=== PATIENT | female | born 1995 | race Two or more races ===

== ENCOUNTER 2024-12-26 11:11 | Outpatient (REF) | payer MEDICAID, SELFPAY ==
--- OUTSIDE RECORDS SUMMARY | 2024-12-23 23:59 | XMS_ITS | Continuity of Care Document ---
Author Organization [facility] Address [address] [place] [address]- Care Team Providers Care Public Address Systems Mechanic Name Role Phone Krystal BOWER, Marga Polanco Primary Care Physician [phone] Encounter [facility] [place] Date(s): 11/23/24 - 12/23/24 [facility] [address] [place] [address]- Attending Physician: Admtr, Ar8 Admitting Physician: Admtr, Ar8 Referring Physician: Admtr, Ar8 Encounter Type: Triage Allergies, Adverse Reactions, Alerts Substance Criticality Severity Reaction Reaction Severity Status Latex rash Active Immunizations Given and Recorded Vaccine Date Status Refusal Reason SARS-CoV-2 (COVID-19) mRNA-1273 vaccine 01/14/21 R ecorded SARS-CoV-2 (COVID-19) mRNA-1273 vaccine 04/09/20 R ecorded SARS-CoV-2 (COVID-19) mRNA-1273 vaccine 03/10/20 R ecorded influenza virus vaccine, inactivated 11/10/20 Cory rded influenza virus vaccine, inactivated 03/01/19 Cory rded influenza virus vaccine, inactivated 10/17/15 Cory rded influenza virus vaccine, inactivated 01/18/12 Cory rded influenza virus vaccine, inactivated 11/14/09 Cory rded influenza virus vaccine, inactivated 10/22/08 Cory rded hepatitis B adult vaccine 10/10/19 Recorded hepatitis B adult vaccine 02/14/19 Recorded hepatitis B adult vaccine 01/17/19 Recorded tetanus-diphtheria toxoids (Td) 07/19/18 Recorded Meningococcal Conjugate Vaccine 07/04/14 Recorded Meningococcal Conjugate Vaccine 11/14/09 Recorded Human Papillomavirus Vaccine 06/04/10 Recorded Human Papillomavirus Vaccine 01/16/10 Recorded Human Papillomavirus Vaccine 11/14/09 Recorded Varicella Virus Vaccine 11/14/09 Recorded Varicella Virus Vaccine 12/02/98 Recorded tetanus/diphtheria/pertussis, acel(Tdap) 10/06/06 Recorded hepatitis B pediatric vaccine 10/05/06 Recorded hepatitis B pediatric vaccine 97 Recorded hepatitis B pediatric vaccine 97 Recorded hepatitis B pediatric vaccine 97 Recorded Poliovirus Vaccine, Inactivated 08/21/01 Recorded Poliovirus Vaccine, Inactivated 01/29/98 Recorded Poliovirus Vaccine, Inactivated 97 Recorded Poliovirus Vaccine, Inactivated 97 Recorded Measles/Mumps/Rubella Virus Vaccine 08/21/01 Recor ded Measles/Mumps/Rubella Virus Vaccine 07/30/98 Recor ded diphtheria/tetanus/pertussis, acel(DTaP) 08/21/01 Recorded diphtheria/tetanus/pertussis, acel(DTaP) 02/08/99 Recorded diphtheria/tetanus/pertussis, acel(DTaP) 01/07/98 Recorded diphtheria/tetanus/pertussis, acel(DTaP) 97 Recorded diphtheria/tetanus/pertussis, acel(DTaP) 97 Recorded Medications levETIRAcetam 500 mg oral tablet, extended release 60 each, 0 Refill(s), TAKE 2 TABLETS BY MOUTH AT NIGHT, 0 Refills, 07/19/24 8:22:00 AM EDT, Partial fill upon patient request if the prescription is for a schedule II opioid drug. Start Date: 07/19/24 Status: Ordered Medication Dispense Status: Completed Total Allowed Fills: 1 Fills Dispensed: 0 Multivitamin 1 TAB, By Mouth, Daily, 0 Refills, Maintenance, 11/02/24 2:53:00 PM EDT, Partial fill upon patient request if the prescription is for a schedule II opioid drug. Start Date: 11/02/24 Status: Ordered Medication Dispense Status: Completed Total Allowed Fills: 1 Fills Dispensed: 0 Problem List Condition Confirmation Course Effective Dates Status Health St atus Informant Binge eating disorder, moderate, in partial remission Confirmed Active Obesity (BMI 30-39.9) Confirmed Active Generalized anxiety disorder, in full remission Confirmed Active Heartburn Confirmed Active Insomnia Confirmed Active PCOS (polycystic ovarian syndrome) Confirmed Active Right upper quadrant pain Confirmed Active Seizure Confirmed Active Hepatic steatosis Confirmed Active Social History Social History Type Response Smoking Status Never (less than 100 in lifetime) entered on: 09/03/21 Sexual Orientation Self described orien tation: ; Straight or heterosexual Sex Sex Representation Female (finding) Patient Care team information Care Team Personnel Name: Krystal BOWER , Marga Polanco Position: S Outreach Member Role: PCP Address: [address] [place] [phone] Telecom: Care Team Related Persons Name: BERNABE HOOK Name: BRONWYN HOOK Name: CARROLL BOLAND Name: MATTHEW DEL CID Insurance Providers Guarantor name: ANA [employer] Health Plan Information #: 1 Payer: [employer] Payer Identifier: DORI Member Number: [id number] Group Number: [id number] Subscriber Identifier: DORI Relationship to Subscriber: self Coverage Type: MEDICAID Coverage Verification Date: NA Telecom: NA Address: NA
--- OUTSIDE RECORDS SUMMARY | 2024-12-23 23:59 | XMS_ITS | Continuity of Care Document ---
Author Organization [facility] Address [address] [place] [address]- Care Team Providers Care Driller Operator Name Role Phone Krystal BOWER, Marga Polanco Primary Care Physician [phone] Encounter [facility] [place] Date(s): 11/23/24 - 12/23/24 [facility] [address] [place] [address]- Attending Physician: Not on Staff, Attending MD Referring Physician: Marga Rice MD Encounter Type: Pre Office Visit Allergies, Adverse Reactions, Alerts Substance Criticality Severity [...] Care team information Care Team Personnel Name: Marga Rice MD Position: [facility] Outreach Member Role: PCP Address: [address] [place] [phone] Telecom: Care Team Related Persons Name: BERNABE HOOK Name: BRONWYN HOOK Name: CARROLL BOLAND Name: MATTHEW DEL CID Insurance Providers Guarantor name: ANA [facility] Health Plan Information #: 1 Payer: [employer] Payer Identifier: DORI Member Number: [id number] Group Number: [id number] Subscriber Identifier: [id number] Relationship to Subscriber: self Coverage Type: MEDICAID Coverage Verification Date: NA Telecom: NA Address:
--- OUTSIDE RECORDS SUMMARY | 2024-12-26 09:30 | XMS_ITS | Encounter Summary ---
Author Organization [facility] Address [address] [place] [address] [address] [place] [address] Care Team Providers Care Medicare Specialist Name Role Phone Stew [facility] Primary Care Provider [phone] Reason for Visit * Reason Comments Annual Exam Encounter Details Date Type Department Care Team ([facility] st Contact Info) Description 12/26/2024 9:30 AM EST Office Visit [facility] [address] [place], [place] [phone] [place] [facility] [address] [place] [address] Routine screening for STI (sexually transmitted infection) (Primary Dx); Healthcare maintenance; Status post bariatric surgery; Other fatigue; Encounter for immunization Social History Tobacco Use Types Packs/Day Years Used Date Smoking Tobacco: Never Smokeless Tobacco: Never Tobacco Cessation:Counseling Given: Not Answered Alcohol Use Standard Drinks/Week Comments Never 0 (1 standard drink = 0.6 oz pur e alcohol) Depression Answer Date Recorded Patient Health Questionnaire-9 Score 0 12/26/2024 Patient Health Questionnaire-9 Score 0 12/26/2024 Last PHQ-9: Questionnaire Data Not on file 1 02/26/2024 Housing Stability Answer Date Recorded What is your housing situation today? I have acekaur delatorre 12/06/[address] you li ve. Do you have problems with any of the following? None of the above 12/06/2022 Food Insecurity Answer Date Recorded Within the past 12 months, y ou worried that your food would run out before you got money to buy more: Never True 12/06/2022 Within the past 12 months,th e food you bought just didn't last and you didn't have enough money to get more: Never True Transportation Answer Date Recorded In the past 12 months, has l ack of transportation kept you from medical appts, meetings, work or from getting things needed for daily living? No 12/06/2022 Utilities Answer Date Recorded In the past 12 months, has t he electric, gas, oil or water company threatened to shut off services in your home? No 12/06/2022 Depression Answer Date Recorded Patient Health Questionnaire-2 Score 0 12/26/2024 Comments No Sex and Gender Information Value Date Recorded Sex Assigned at Female 12/07/2021 10:35 AM EDT Legal Sex Female 10:35 AM EDT Gender Identity Female 12/07/2021 10:35 AM EDT Sexual Orientation Straight 12/07/2021 10 :35 AM EDT documented as of this encounter Last Filed Vital Signs Vital Sign Reading Time Taken Comments Blood Pressure 120/80 12/26/2024 9:29 AM EST Pulse 80 12/26/2024 9:29 AM EST Temperature 36.7 C (98.1 F) 12/26/2024 9:29 AM EST Respiratory Rate 18 12/26/2024 9:29 AM EST Oxygen Saturation - - Inhaled Oxygen Concentration - - Weight 60.4 kg (133 lb 3.2 oz) 12/26/2024 9:29 A M EST Height 160 cm (5' 3 ) 12/26/2024 9:29 AM EST Body Mass Index 23.6 12/26/2024 9:29 AM EST documented in this encounter Functional Status * Over the past 2 weeks, how often have you been bothered by any of the following problems? Question Answer Date of Assessment Author Patient Health Questionnaire-2 Score 0 12/26/2024 9:36 AM EST Alexandrea Breen MA * Little interest or pleasure in doing things Answer Date of Assessment Author Not at all 12/26/2024 9:36 AM EST Alexandrea Acosta MA * Feeling down, depressed, or hopeless Answer Date of Assessment Author Not at all 12/26/2024 9:36 AM EST Alexandrea Acosta MA * Trouble falling or staying asleep, or sleeping too much Answer Date of Assessment Author Not at all 12/26/2024 9:36 AM Alexandrea Mcnally MA * Feeling tired or having little energy Answer Date of Assessment Author Not at all 12/26/2024 9:36 AM Alexandrea Mcnally MA * Poor appetite or overeating Answer Date of Assessment Author Not at all 12/26/2024 9:36 AM Alexandrea Mcnally MA * Feeling bad about yourself - or that you are a failure or have let yourself or your family down Answer Date of Assessment Author Not at all 12/26/2024 9:36 AM Alexandrea Mcnally MA * Trouble concentrating on things, such as reading the newspaper or watching television Answer Date of Assessment Author Not at all 12/26/2024 9:36 AM Alexandrea Mcnally MA * Moving or speaking so slowly that other people could have noticed? Or the opposite - being so fidgety or restless that you have been moving around a lot more than usual. Answer Date of Assessment Author Not at all 12/26/2024 9:36 AM Alexandrea Mcnally MA * Thoughts that you would be better off or hurting yourself in some way Answer Date of Assessment Author Not at all 12/26/2024 9:36 AM Alexandrea Mcnally MA * Patient Health Questionnaire-9 Score Answer Date of Assessment Author 0 12/26/2024 9:36 AM Alexandrea Mcnally MA * Over the last 2 weeks, how often have you been bothered by any of the following problems? Question Answer Date of Assessment Author Feeling nervous, anxious, or on edge 0 12/26/2024 9:36 AM Alexandrea White MA Not being able to stop or control worrying 0 12/26/2024 9:36 AM Alexandrea White MA Worrying too much about different things 0 12/26/2024 9:36 AM Alexandrea White MA Trouble relaxing 0 12/26/2024 9:36 AM Alexandrea Lozano MA Being so restless that it is hard to sit still 0 12/26/2024 9:36 AM EST Alexandrea Breen MA Becoming easily annoyed or irritable 0 12/26/2024 9:36 AM EST Alexandrea Breen MA Feeling afraid as if something awful might happen 0 12/26/2024 9:36 AM EST Alexandrea Song MA DAMION-7 Total Score 0 12/26/2024 9:36 AM EST Alexandrea Breen MA documented as of this encounter Plan of Treatment Upcoming Encounters Date Type Department Care Team (Late st Contact Info) Description 03/18/2025 9:00 AM EST Office Visit [facility] [address] [place], [place] [phone] TarkaHeydi, OD [address] [place] [address] Scheduled Orders Name Type Priority Associated Diagnoses Orde r Schedule Syphilis Screen Lab Routine Routine screening for STI (sexually transmitted infection) Expected: 12/26/2024, Expires: 12/26/2025 HIV-1/2 Antigen and Antibodies, Fourth Generation, with Reflexes Lab Routine Routine screening for STI (sexually transmitted infection) Expected: 12/26/2024 (Approximate), Expires: 12/26/2025 Hepatitis C Antibody with Reflex to HCV, RNA, Quantitative, Real-Time PCR Lab Routine Routine screening for STI (sexually transmitted infection) Expected: 12/26/2024, Expires: 12/26/2025 Hepatitis B surface antigen, EIA Lab Routine Routine screening for STI (sexually transmitted infection) Expected: 12/26/2024 (Approximate), Expires: 12/26/2025 Hepatitis B Core Antibody, Total Lab Routine Routine screening for STI (sexually transmitted infection) Expected: 12/26/2024 (Approximate), Expires: 12/26/2025 Hepatitis B Surface Antibody, Qualitative Lab Routine Routine screening for STI (sexually transmitted infection) Expected: 12/26/2024 (Approximate), Expires: 12/26/2025 Chlamydia/N. Gonorrhoeae RNA, TMA, Urogenitial Microbiology Routine Routine screening for STI (sexually transmitted infection) Expected: 12/26/2024 (Approximate), Expires: 12/26/2025 Zinc Lab Routine Status post bariatric surgery Expected: 12/26/2024 (Approximate), Expires: 12/26/2025 Vitamin B1 Lab Routine Status post bariatric surgery Expected: 12/26/2024 (Approximate), Expires: 12/26/2025 documented as of this encounter Procedures Procedure Name Priority Date/Time Associated Diagnosis Comments VITAMIN D,25-OH,TOTAL,IA Routine 12/26/2024 11:30 AM EST Status post bariatric surgery VITAMIN B12/FOLATE, SERUM PANEL Routine 12/26/2024 11:30 AM EST Status post bariatric surgery TSH W/REFLEX TO FT4 Routine 12/26/2024 1 1:30 AM EST Other fatigue CBC WITH AUTO DIFFERENTIAL Routine 12/26/2024 11:30 AM EST Status post bariatric surgery FERRITIN Routine 12/26/2024 11:30 AM EST Status post bariatric surgery LIPID PANEL, STANDARD Routine 12/26/2024 11:30 AM EST Healthcare maintenance documented in this encounter Results * Ferritin (12/26/2024 11:30 AM EST) Ferritin 96 10 - 122 ng/mL [facility] Blood Venous blood specimen / Unknown 12/26/2024 11:30 AM EST 12/26/2024 11:30 AM EST [facility] LAB BLOOD ORDERABLES Final Re sult [facility] [address] [place] [phone] * TSH W/Reflex to FT4 (12/26/2024 11:30 AM EST) TSH reflex Free T4 0.52 0.32 - 4.0 uIU/mL [facility] Blood Venous blood specimen / Unknown 12/26/2024 11:30 AM EST 12/26/2024 11:30 AM EST [facility] LAB BLOOD ORDERABLES Final Re sult Performing Organization Address [facility]/ZIP Co de Phone Number [facility] [address] [place] [address] [phone] * Vitamin D, 25-Hydroxy, Total, Immunoassay (12/26/2024 11:30 AM EST) Vitamin D 25-OH Total 30.9 >30 ng/mL [facility] Comment: Health Based Reference Values*< 20 ng/mL [id number] ng/mL Insufficient> 30 ng/mL Sufficient*Tejal WEBB. N Engl J Med. 2007;357:266-280There is no well-established upper level of normal vitamin Dlevels. Some laboratories use 50 ng/mL as an upper limit ofnormal. However, toxicity is patient-dependent and may occurat any level. Careful correlation with the patient'spresentation is necessary and, if there is concern forvitamin D toxicity, treatment should be consideredirrespective of the serum level.Care must be taken in interpreting Vitamin D results fromdifferent laboratories and methodologies. Published datademonstrated that results from patients undergoinghemodialysis may show a negative bias when tested withvarious automated 25-OH vitamin D assays when compared toLC-MS/MS.When testing samples from patients whose predominant form ofVitamin D is Vitamin D2, such as patients receiving VitaminD2 supplementation, results that are subtherapeutic shouldbe confirmed with another method such as LC-MS/MS. Blood Venous blood specimen / Unknown 12/26/2024 11:30 AM EST 12/26/2024 11:30 AM EST [facility] LAB BLOOD ORDERABLES Final Re sult Performing Organization Address [facility]/ZIP Co de Phone Number [facility] [address] [place] [address] [phone] * CBC auto differential (12/26/2024 11:30 AM EST) White Blood Count 8.2 4.8 - 10.8 X10*3/uL [facility] Red Blood Count 4.70 4.20 - 5.50 X10*6/uL [facility] Hemoglobin 13.5 12.0 - 16.0 g/dl [facility] Hematocrit 42.1 37.0 - 47.0 % [facility] Mean Corpuscular Volume 89.6 80.0 - 98.0 fL [facility] Mean Corpuscular Hemoglobin 28.7 27.0 - 33.0 pg [facility] Mean Corpuscular HGB Conc 32.1 31.0 - 35.0 g/dl [facility] Red Cell Distribution Width 12.5 11.0 - 16.0 % [facility] Platelet Count 324 160 - 400 X10*3/uL [facility] Mean Platelet Volume 10.6 9.4 - 12.3 fL [facility] Neutrophils Percent Auto 66.5 45 - 73 % [facility] Imm Gran Pct Auto 0.2 0.0 - 0.4 % [facility] Lymphocytes Percent Auto 26.8 20 - 40 % [facility] Monocytes Percent Auto 5.6 2 - 11 % [facility] Eosinophils Percent Auto 0.4 0 - 4 % [facility] Basophils Percent Auto 0.5 0 - 2 % [facility] NRBC Pct Auto 0.0 0.0 - 0.2 /100WBC [facility] Neutrophils Absolute Auto 5.4 2.0 - 8.3 x10*3/uL [facility] Imm Gran Abs Auto 0.02 0.00 - 0.03 X10*3/uL [facility] Lymphocytes Absolute Auto 2.2 1.2 - 4.9 X10*3/uL [facility] Monocytes Absolute Auto 0.5 0.1 - 1.2 X10*3/uL [facility] Eosinophils Absolute Auto 0.0 0.0 - 0.4 X10*3/uL [facility] Basophils Absolute Auto 0.0 0.0 - 0.2 X10*3/uL [facility] NRBC Abs Auto 0.000 0.0 - 0.012 X10*3/uL [facility] Blood Venous blood specimen / Unknown 12/26/2024 11:30 AM EST 12/26/2024 11:30 AM EST [facility] LAB BLOOD ORDERABLES Final Re sult Performing Organization Address [facility] Co de Phone Number [facility] [address] [place] [phone] * Vitamin B12/Folate, Serum Panel (12/26/2024 11:30 AM EST) Vitamin B12 292 200 - 900 pg/mL [facility] Comment:NORMAL 200-900 PG/ML INDETERMINATE 160-199 PG/ML DEFICIENT < 160 PG/ML Folate 13.0 > or = 4.0 ng/mL [facility] Comment:Reference Values:> o r = 4.0 ng/mL< 4.0 ng/mL suggests folate deficiency Methotrexate, aminopterin and folinic acid(leucovorin) are chemotherapeutic agents whose molecularstructures are similar to folate; therefore, the Architectfolate assay cannot be used for patients using these drugs. Blood Venous blood specimen / Unknown 12/26/2024 11:30 AM EST 12/26/2024 11:30 AM EST [facility] LAB BLOOD ORDERABLES Final Re sult Performing Organization Address [facility] Co de Phone Number [facility] [address] [place] [phone] * Lipid Panel, Standard (12/26/2024 11:30 AM EST) Triglycerides 62 <150 mg/dL [facility] Comment:Desirable Triglyceri de: less than 150 mg/dLBorderline High Triglyceride 150-199 mg/dLHigh Triglyceride: 200-499 mg/dLVery High Triglyceride: greater than or equal to 5OO mg/dL Cholesterol 149 <200 mg/dL [facility] Comment:Desirable Cholestero l: less than 200 mg/dLBorderline High Cholesterol: 200-239 mg/dLHigh Cholesterol: greater than 239 mg/dL LDL Cholesterol Calculated 83 <100 mg/dL [facility] Comment:Desirable LDL: less than 100 mg/dLNear Optimal/Above Optimal LDL: 110- 129 mg/dLBorderline High LDL: 130-159 mg/dLHigh LDL: 160-189 mg/dLVery High LDL: greater than or equal to 190 mg/dL HDL Cholesterol 54 >40 mg/dL [facility] Comment:Desirable HDL: great er than 40 mg/dL Note: This HDL assay may give artificially low results in patients with liver disease. Blood Venous blood specimen / Unknown 12/26/2024 11:30 AM EST 12/26/2024 11:30 AM EST [facility] LAB BLOOD ORDERABLES Final Re sult Performing Organization Address [facility] Co de Phone Number [facility] [address] [place] [phone] documented in this encounter Visit Diagnoses Diagnosis Routine screening for STI (sexually transmitted infection)- Primary Screening examination for venereal disease Healthcare maintenance Status post bariatric surgery Bariatric surgery status Other fatigue Encounter for immunization documented in this encounter Additional Health Concerns Assessment Noted Time PHQ-9 Depression Total Score: 0 12/27/19 25 9:36 AM EST documented as of this encounter Care Teams Medicare Specialist Relationship Specialty Start Date End Date Aiyana Mathias FNP [address] [place] [phone] PCP - General Family Medicine 10/06/21 documented as of this encounter
[2024-12-26 11:31] LABS: MANUAL DIFF FLAG NO
[2024-12-26 12:25] LABS: Hematocrit 42.1 % (37.0-47.0); Hemoglobin 13.5 g/dl (12.0-16.0); Imm Gran Abs Auto 0.02 X10*3/uL (0.00-0.03); Imm Gran Pct Auto 0.2 % (0.0-0.4); Lymphocytes Absolute Auto 2.2 X10*3/uL (1.2-4.9); Mean Corpuscular HGB Conc 32.1 g/dl (31.0-35.0); Mean Corpuscular Hemoglobin 28.7 pg (27.0-33.0); Mean Corpuscular Volume 89.6 fL (80.0-98.0); NRBC Abs Auto 0.000 X10*3/uL (0.0-0.012); NRBC Pct Auto 0.0 /100WBC (0.0-0.2); Platelet Count 324 X10*3/uL (160-400); Red Blood Count 4.70 X10*6/uL (4.20-5.50); White Blood Count 8.2 X10*3/uL (4.8-10.8)
[2024-12-26 13:44] LABS: Cholesterol 149 mg/dL (<200); Ferritin 96 ng/mL (10-122); HDL Cholesterol 54 mg/dL (>40); Triglycerides 62 mg/dL (<150)
[2024-12-26 14:47] LABS: Folate 13.0 ng/mL (> or = 4.0); Vitamin B12 292 pg/mL (200-900)
--- OUTSIDE RECORDS SUMMARY | 2024-12-26 22:12 | XMS_ITS | Clinical Summary ---
Author Organization [facility] Address [address] [place] [id number] Phone Care Team Providers Care Retail Coverage Merchandiser Lead Name Role Phone Unknown, Unknown Primary Care Provider Unavayuval lable Allergies Active Allergy Reactions Criticality Noted Date Comments Nickel Itching Medium 01/06/2015 Causes eczema Medications levETIRAcetam (KEPPRA XR) 750 mg Tb24 Take 1 tablet (750 mg total) by mouth 2 (two) times a day. 1 Active pectin/vit B6/mins 4/c.vinegar (APPLE CIDER VINEGAR COMPLEX ORAL) Take 2 tablets by mouth daily. 1 Active MULTIVITAMIN ORAL Take 3 tablets by mouth daily. Active triamcinolone acetonide 0.1 % cream Apply topically 2 (two) times a day. 30 g 2 Active Additional Information Patient not taking.Reported on 11/23/2024 escitalopram oxalate (LEXAPRO) 10 MG tabletIndicatio ns:Generalized anxiety disorder TAKE 1 TABLET(10 MG) BY MOUTH DAILY 30 tablet 1 2 Active fluconazole (DIFLUCAN) 150 MG tablet Take 1 tablet on day 1. If symptoms persist 3 days after initial treatment, take 1 additional tablet at that time. 2 tablet 4 Active Additional Information Patient not taking.Reported on 11/23/2024 levETIRAcetam (KEPPRA XR) 500 mg 24 hr tablet take 2 tablets by mouth at night Active cefpodoxime (VANTIN) 200 MG tablet Take 1 tablet (200 mg total) by mouth 2 (two) times a day for 10 days. 20 tablet 5 12/04/19 25 L.acidoph-L.bul g-B.bif-S.liz (BACID) 1 billion cell- 250 mg Tab Take 2 tablets by mouth daily. 60 tablet 5 12/24/19 25 Active Problems Problem Noted Date Diagnosed Date Generalized anxiety disorder 12/13/2020 Assessment & Plan (12/13/2020 12:04 PM EDT): High situational stressors, but patient does feel some benefit from Lexapro. No significant side effects reported. Will increase dose to 10 mg daily and continue to monitor. Discussed importance of psychotherapy. F/u in 3 months or sooner as needed. PCOS (polycystic ovarian syndrome) 11/12/2020 Assessment & Plan (11/12/2020 7:59 PM EDT): Presencie of irregular periods, hirsutism, overweight, and nigricans acanthosis suggestive of polycystic ovarian syndrome. Recent lab work also consistent, with elevated testosterone and insulin level. Will do further work up with pelvic ultrasound to evaluate for ovarian cysts. F/u in 1-2 months after ultrasound results are back. May consider referral to endocrinology based on these results. Pt verbalizes understanding and in agreement with plan. Routine general medical exam ination at a health care facility 11/12/2020 Assessment & Plan (11/12/2020 7:53 PM EDT): Generally well female. Up to date on immunizations. Pap smear obtained in office today. No additional screenings recommended at this age. Recommend healthy eating and regular exercise. Anxiety 11/12/2020 Assessment & Plan (11/12/2020 8:02 PM EDT): Discussed pharmacotherapy, although would recommend trying some behavioral therapies to decrease anxiety, such as mindfulness practices, regular exercise, or yoga. Urged patient to connect with psychotherapist for regular talk therapy/CBT treatments. Pt verbalizes understanding and in agreement with plan. Migraine without aura and wi thout status migrainosus, not intractable 09/19/2020 Assessment & Plan (11/12/2020 7:54 PM EDT): F/u with [facility] neurology for further discussion of preventative therapies. Assessment & Plan (09/19/2020 6:05 PM EDT): History consistent with migraine headache. Would recommend follow up with neurology for evaluation/discuss of prophylactic therapies. Continue NSAIDs for abortive therapies. F/u for worsening headaches. Seizure disorder 08/04/2020 Assessment & Plan (11/12/2020 7:23 PM EDT): Stable with Keppra without recent seizure reported. Upcoming appointment with Dr. Rangel at [facility] neurology. Assessment & Plan (09/19/2020 6:04 PM EDT): New onset seizure disorder, although patient has been unable to connect with outpatient neurology. Will do referral to [facility]. Continue Keppra at current regimen. Overweight 09/07/2019 Assessment & Plan (11/12/2020 8:02 PM EDT): Encourage healthy eating and regular exercise. Resolved Problems Problem Noted Date Diagnosed Date Resolved Date Eczema 09/19/2020 11/12/2020 Overview (09/19/2020): triamcinolone; referred to chelsy alvarado 04/20 Missed menses 09/19/2020 11/12/2020 Assessment & Plan (09/19/2020 6:06 PM EDT): Patient reassured that her urine test was negative. May have some irregular menses following IUD use but would recommend referral to gynecology if ongoing issues. Encounters Date Type Department Care Team Description 11/[facility] [address] [address] Magdaleno Caldwell PA-C 11/23/2024 11:40 AM EDT [facility] [address] [address] Shu Alvarado PA-C Dysuria (Primary Dx); Pyelonephritis, acute from Last 3 Months Immunizations Immunization Administration Dates Next Due COVID-19 (Pre-11/29) Moderna Vaccine, mRNA, PF 01/14/2021,04/09/2020,03/10/2020 DTaP 08/21/2001, 0,01/07/1998,11/07,1997 BHdS-Vwc-UKO 12/02/1998, 8,1997,09/07 HPV,quadrivalent 06/04/2010,01/16/2010, 0 Hepatitis B 10/05/2006, 8,1997,07/26 Hepatitis B Adult 10/10/2019,02/14/2019,01/18/20 19 Hib,HbOC 12/02/1998, 8,1997,09/07 INFLUENZA, SPLIT VIRUS, TRIVALENT PF 10/17/2015 INFLUENZA, SPLIT VIRUS, TRIV ALENT W/ PRESERVATIVE IM 01/18/2012,11/14/2009,10/22/2008 IPV 08/21/2001, 8,1997,09/07 Influenza Quadrivalent MDCK Preservative Free IM 03/01/2019 Influenza Quadrivalent Prese rvative Free IM 11/26/2022,11/10/2020,11/10/2020 MMR 08/21/2001,07/30/1998 Meningococcal MCV4P 07/04/2014,11/14/2009 Td (adult),2 Lf Tetanus Toxo id, PF, Adsorbed 07/19/2018 Tdap 10/06/2006 Varicella 11/14/2009,12/02/1998 Family History Medical History Relation Comments Allergic rhinitis Brother Eczema Brother Hyperlipidemia Father Hypertension Father Diabetes Maternal Aunt Diabetes Maternal Grandfather Diabetes Maternal Grandmother Heart attack Maternal Grandmother Stroke Maternal Grandmother Diabetes Maternal Uncle No Known Problems Mother Heart attack Paternal Grandfather Stroke Paternal Grandmother Relation Status Comments Brother Alive Father Alive Maternal Aunt Alive Maternal Grandfather Alive Maternal Grandmother (Age 71) Maternal Uncle Mother Alive Paternal Grandfather Paternal Grandmother (Age 68) Social History Tobacco Use Types Packs/Day Years Used Date Smoking Tobacco: Former Cigarettes 1 1.5 0 08/2015 - 2017 Smokeless Tobacco: Never Tobacco Cessation:Counseling Given: Not Answered Alcohol Use Standard Drinks/Week Comments Yes 0 (1 standard drink = 0.6 oz pur e alcohol) 1-2 drinks occasionally Child or Family Care Answer Date Record ed Do you have problems with on e of the following making it difficult for you to work, study, or receive health care? No 09/16/2020 Education Answer Date Recorded Are you interested in more education? Not on ana e 09/22/2022 Are you concerned about learning? Not on file 09/22/2022 No 09/22/2022 No 09/22/2022 Food Answer Date Recorded Within the past 6 months we worried whether our food would run out before we got money to buy more. Never True 09/16/2020 Within the past 6 months the food we bought just didn't last and we didn't have enough money to get more. Never True Residential Stability Answer Date Recor ded What is your housing situation today? I do not have housing (staying with others, in a hotel, in a fdc, living outside on the street, on a beach, in a car, or in a park) 09/16/2020 How many times have you move d in the past 12 months? Zero (I did not move) 09/16/2020 06 Are you worried that in t he next 2 months, you may not have your own housing to live in? Yes 09/16/2020 Paying for Meds Answer Date Recorded Do you have trouble paying for medicines? No 09/16/2020 Paying Utility Bills Answer Date Record ed Do you have trouble paying your heating or elect ricity bill? No 09/16/2020 Transportation Answer Date Recorded Has the lack of transportati on kept you from medical appointments or from getting medications? No 09/16/2020 Unemployment Answer Date Recorded Are you currently unemployed or working on a part-time or temporary basis, and looking for work? No 09/16/2020 Digital Access Answer Date Recorded No 07/03/2022 No 07/03/2022 Reliable internet access at home? Not on file 07/03/2022 Device with a working camera? Not on file Comments No Sex and Gender Information Value Date Recorded Sex Assigned at Female 09/16/2020 10:07 AM EDT Legal Sex Female 2:53 PM EST Gender Identity Female 09/16/2020 10:07 AM EDT Sexual Orientation Not on file Last Filed Vital Signs Vital Sign Reading Time Taken Comments Blood Pressure 106/68 11/23/2024 11:49 AM EDT Pulse 62 11/23/2024 11:49 AM EDT Temperature 36.9 C (98.5 F) 11/23/2024 11:49 AM EDT Respiratory Rate 16 11/23/2024 11:49 AM EDT Oxygen Saturation 100% 11/23/2024 11:49 AM EDT Inhaled Oxygen Concentration - - Weight 59.9 kg (132 lb) 11/23/2024 11:49 AM EDT Height 158.8 cm (5' 2.5 ) 11/23/2024 11:49 AM ED T Body Mass Index 23.76 11/23/2024 11:49 AM EDT Plan of Treatment Health Maintenance Due Date Last Done Comments DEPRESSION SCREENING 11/09/2021 11/09/2020 PAP SMEAR 11/13/2023 11/12/2020 INFLUENZA VACCINE (#1) 2024 , 11/26/2022, 11/10/2020, Additional history exists COVID-19 VACCINE ( season) 2024 01/14/2021, 04/09/2020, 03/10/2020 Adult Td,Tdap Booster 07/19/2028 07/19/2018, 007 SMOKING STATUS SCREENING (Every 5 Years) 11/23/2029 11/23/2024 HIB VACCINES Completed 12/02/1998, 11/08, 01/07/1998, Additional history exists MENINGOCOCCAL VACCINES (ACWY) Completed 07/04/2014, 11/14/2009 HEPATITIS C SCREENING Completed 11/10/2020 HIV ONE-TIME SCREENING (18-65 YEARS) Completed 11/10/2020 HEPATITIS A VACCINES Aged Out No long er eligible based on patient's age to complete this topic MENINGOCOCCAL VACCINES (B) Aged Out N o longer eligible based on patient's age to complete this topic PNEUMOCOCCAL VACCINES (0-49 years) Aged Out No longer eligible based on patient's age to complete this topic Medical Devices Not on file Procedures Procedure Name Priority Date/Time Associated Diagnosis Comments POCT URINE HCG Routine 11/23/2024 12:00 PM EDT Dysuria URINE CULTURE Routine 11/23/2024 11:57 AM EDT Dysuria POCT URINE DIPSTICK Routine 11/23/2024 1 1:54 AM EDT PAP TEST Routine 11/12/2020 12:00 AM EDT HEPATITIS C ANTIBODY, QUALITATIVE Routine 11/10/2020 8:05 AM EDT Need for hepatitis C screening test Laboratory examination ordered as part of a routine general medical examination from Last 3 Months or Most Recently Relevant to Health Maintenance Results * Poct Urine HCG (11/23/2024 12:00 PM EDT) HCG, urine Negative, Internal QCs acceptable Negative Other 11/23/2024 12:0 0 PM EDT Shu Alvarado PA-C LAB POCT ENTER/EDIT ORDERAB LES Final Result * (ABNORMAL) Urine Culture (11/23/2024 11:57 AM EDT) Special Requests None 11/23/2024 11:57 AM EDT [facility] Urine Culture >100,000 colony forming units per mL ESCHERICHIA COLI(A) 11/24/2024 11:27 AM EDT [facility] Urine (Urine) 11/23/2024 11: 57 AM EDT 11/23/2024 5:59 PM EDT Narrative Organism Antibiotic Method Susceptibility Escherichia coli Ampicillin BINDU METHOD 4: Susceptible Escherichia coli Ampicillin + Sulbactam BINDU METHOD <=2: Susceptible Escherichia coli Cefepime BINDU METHOD <=0.12: Susceptible Escherichia coli Ceftazidime BINDU METHOD <=0.5: Susceptible Escherichia coli Ceftriaxone BINDU METHOD <=0.25: Susceptible Escherichia coli Ciprofloxacin BINDU METHOD <=0.06: Susceptible Escherichia coli Extended Spectrum B-lactamase BINDU MET HOD Negative Escherichia coli Gentamicin BINDU METHOD <=1: Susceptible Escherichia coli Levofloxacin BINDU METHOD <=0.12: Susceptible Escherichia coli Nitrofurantoin BINDU METHOD <=16: Susceptible Escherichia coli Piperacillin-tazobactam BINDU METHOD <=4: Susceptible Escherichia coli Trimethoprim/sulfamethoxazole BINDU MET HOD <=20: Susceptible Escherichia coli Cefazolin(urine) BINDU METHOD <=1: Susceptible Comment: Shu Alvarado PA-C LAB MICROBIOLOGY CULTURE OR DERABLES Final Result [address] [address] * (ABNORMAL) POCT Urine Dipstick (Automated) (11/23/2024 11:54 AM EDT) [facility] COLOR Yellow [facility] TURBIDITY Clear [facility] GLUCOSE, POCT Negative Negative [facility] KETONE, POCT Negative Negative [facility] OCCULT BLOOD, POCT Negative Negative [facility] SPECIFIC GRAVITY, POCT 1.020 1.001 - 1.030 [facility] ALBUMIN, POCT Negative Negative [facility] Bili Negative Negative [facility] Urobilinogen 0.2 <1.0 [facility] NITRITE, POCT Negative Negative [facility] PH, POCT 8.0 5.0 - 8.0 [facility] WBC SCREEN, POCT Trace(A) Negative [facility] 11/23/2024 11:5 4 AM EDT 11/23/2024 11:57 AM EDT Shu Alvarado PA-C LAB POCT ENTER/EDIT ORDERAB LES Final Result Performing Organization Address City/[facility]/ZIP Co de Phone Number [facility] [address] [address], [facility] [phone] * Pap Smear (11/12/2020 12:00 AM EDT) 11/12/2020 11/13/2020 10: 47 AM EDT Narrative SEE NARRATIVE - 11/25/2020 1:24 [place] [address] [employer] Engineer Sergeant: Alem Dumont MD SHOP DIRECTOR Cytology Report FINAL DIAGNOSIS A. PAP SMEAR (SUREPATH) CE: SPECIMEN ADEQUACY: Satisfactory for evaluation; transformation zone absent/insufficient. INTERPRETATION: NEGATIVE FOR INTRAEPITHELIAL LESION OR MALIGNANCY. Electronically Signed Out By: GUMARO Burnette(ASCP) The Pap test is a screening test primarily for squamous cancers and precursors and has associated false-negative and false-positive results. New technologies such as liquid-based preparations may decrease but will not eliminate all false-negative results. Regular sampling and follow-up of unexplained clinical signs and symptoms are recommended to minimize false negative results. CLINICAL HISTORY Date of Last Menstrual Period: 09-22-2020 Menstrual History: Irregular Menses Other Clinical Conditions: Screening Pap SPECIMEN SOURCE A: PAP SMEAR (SUREPATH) CE Patient Name: ANA CANAS : 1995 (Age: 25) Sex: F Institution: [facility] Location: [facility] Date of Collection: 11/12/2020 Date of Reported: 11/25/2020 13:24 Results to: Sarai Yusuf NP Sarai Yusuf FUEL HANDLER CYTOLOGY ORDERABLES Fi nal Result SEE NARRATIVE * Hepatitis C antibody, qualitative (11/10/2020 8:05 AM EDT) HCV NON-REACTIV E NON-REACTI VE [facility] Blood 11/10/2020 8:05 AM EDT 11/10/2020 8:15 AM EDT Sarai Rosa [place]asant FUEL HANDLER LAB BLOOD BKR ORDERABL ES Final Result [address] [address] from Last 3 Months or Most Recently Relevant to Health Maintenance Insurance HMO [employer] HMO [facility] C3 ACO O O O Member Subscriber Plan / Payer (Ef fective 2020-Present) Name:Ana Canas Relation to Subscriber:Self Name:Ana Canas Payer ID:Not on file Type:HMO Address: [address] C3 [employer]CO O HMO Member Subscriber Plan / Payer (Ef fective 2020-Present) Name:Ana Canas Relation to Subscriber:Self Name:Ana Canas Payer ID:Not on file Type:HMO Address: [address] [place] [place] [address] [place] [address] HMO [facility] [address] [place] [address] [place] [address] HMO [facility] C3 ACO Care Teams Retail Coverage Merchandiser Lead Relationship Specialty Start Date End Date Unknown, Unknown, PCP - General 09/19/23 Additional Source Comments The information contained in this document represents components of the legal health record. It is not the complete legal health record.[facility]
--- OUTSIDE RECORDS SUMMARY | 2024-12-26 22:12 | XMS_ITS | Encounter Summary ---
Author Organization [facility] Address [address] [place] [address] Care Team Providers Care Fast Food Crew Member Name Role Phone Provider, Generic External Data Primary Care Pro vider Unavailable Sarai Yusuf APRN Primary Care Provider [phone] Encounter Details Date Type Department Care Team ([facility] st Contact Info) Description 12/11/2020 Scanned Document [facility] EPILEPSY [id number] [address] [address] Lilian Rangel MD 85 [facility] [address] [place] [id number] Social History Tobacco Use Types Packs/Day Years Used Date Smoking Tobacco: Never Assessed Comments Unknown Sex and Gender Information Value Date Recorded Sex Assigned at Not on file Legal Sex Female 2:19 PM EDT Gender Identity Not on file Sexual Orientation Not on file COVID-19 Exposure Response Date Recorded In the last month, have you been in contact with someone who was confirmed or suspected to have Coronavirus / COVID-19? No / Unsure 11/18/2020 9:04 AM EDT documented as of this encounter Plan of Treatment Not on file documented as of this encounter Visit Diagnoses Not on filedocumented in this encounter Care Teams Fast Food Crew Member Relationship Specialty Start Date End Date Provider, Generic External Data PCP - General 10/06/20 12/23/20 Sarai Yusuf APRN [address] [place] [address] PCP - General Family Medicine 12/24/20 documented as of this encounter
--- OUTSIDE RECORDS SUMMARY | 2024-12-26 22:12 | XMS_ITS | Clinical Summary ---
Author Organization [facility] Address [address] [place] [address] Care Team Providers Care Shearer Operator Name Role Phone Sarai Yusuf APRN Primary Care Provider [phone] Allergies Active Allergy Reactions Criticality Noted Date Comments Latex Hives Medium 02/14/2024 Nickel Itching Medium 01/06/2015 Causes eczema Causes eczema Pineapple Swelling Medium 03/12/2022 Medications metFORMIN (GLUCOPHAGE) 500 MG tablet Take 1 tablet (500 mg total) by mouth 2 (two) times a day with meals. Active levETIRAcetam (KEPPRA XR) 500 MG 24 hr tabletIndicatio ns:Seizures (HCC) TAKE 2 TABLETS BY MOUTH AT NIGHT 60 tablet 9 02/14/2024 Active Active Problems Problem Noted Date Diagnosed Date Migraine with aura 12/29/2020 Partial idiopathic epilepsy with seizures of localized onset, not intractable, without status epilepticus 12/29/2020 Social History Tobacco Use Types Packs/Day Years Used Date Smoking Tobacco: Never Smokeless Tobacco: Never Tobacco Cessation:Counseling Given: Not Answered Alcohol Use Standard Drinks/Week Comments Not Currently 0 (1 standard drink = 0.6 oz pur e alcohol) Comments Unknown Sex and Gender Information Value Date Recorded Sex Assigned at Not on file Legal Sex Female 2:19 PM EDT Gender Identity Not on file Sexual Orientation Not on file Last Filed Vital Signs Vital Sign Reading Time Taken Comments Blood Pressure 110/72 02/14/2024 10:05 AM EST Pulse 63 02/14/2024 10:05 AM EST Temperature - - Respiratory Rate - - Oxygen Saturation - - Inhaled Oxygen Concentration - - Weight 62.6 kg (138 lb) 02/14/2024 10:05 AM EST Height 157.5 cm (5' 2 ) 02/14/2024 10:05 AM EST Body Mass Index 25.24 02/14/2024 10:05 AM EST Plan of Treatment Health Maintenance Due Date Last Done Comments Hepatitis C Virus Screening 1995 DTaP/Tdap/Td Vaccines (1 - Tdap) 2016 Hepatitis B Vaccines (1 of 3 - 19+ 3-dose series) 2016 Pap Smear (Ages 21-65) 2018 Influenza Vaccine 09/07/2024 11/26/2022, , 11/10/2020, Additional history exists COVID-19 Vaccine ( season) 2024 01/14/2021, 04/09/2020, 03/10/2020 HIV Screening Completed 11/10/2020 HPV Vaccines (No Doses Required) Completed Pneumococcal Vaccine: Pediatric (0-5 Years) and At-Risk Patients (6 to 49 Years) Aged Out No longer eligible based on patient's age to complete this topic Care Teams Shearer Operator Relationship Specialty Start Date End Date Sarai Yusuf APRN [address] [place] [address] PCP - General Family Medicine 12/24/20
--- OUTSIDE RECORDS SUMMARY | 2024-12-26 22:12 | XMS_ITS | Encounter Summary ---
Author Organization [facility] Address [address] [place] [address] [address] [place] [address] Care Team Providers Care Hired Hand Name Role Phone [facility] Primary Care Provider [phone] Reason for Visit * Reason Onset Date Comments Reschedule 02/09/2022 Encounter Details Date Type Department Care Team (Late st Contact Info) Description 02/09/2022 Telephone [facility] MEDICINE [address] [place] [address] [facility] [address] [place] [address] Reschedule Social History Tobacco Use Types Packs/Day Years Used Date Smoking Tobacco: Never Assessed Comments Unknown Sex and Gender Information Value Date Recorded Sex Assigned at Female 12/07/2021 10:35 AM EDT Legal Sex Female 10:35 AM EDT Gender Identity Female 12/07/2021 10:35 AM EDT Sexual Orientation Straight 12/07/2021 10 :35 AM EDT documented as of this encounter Miscellaneous Notes * Telephone Encounter - Evelio Becker - 02/09/2022 12:14 PM EST Tc from pt requesting to r/s APPT 02/09/22 at 3pm for TP ( Transfer from PCP Julianna goddard to book per Darlene Archibald ) documented in this encounter Plan of Treatment Upcoming Encounters Date Type Department Care Team (Late st Contact Info) Description 03/18/2025 9:00 AM EST Office Visit [facility] OPTOMETRY [address] [place] [address] Heydi Chambers, OD [address] [place] [address] documented as of this encounter Visit Diagnoses Not on filedocumented in this encounter Care Teams Hired Hand Relationship Specialty Start Date End Date Aiyana Mathias FNP [address] [place] [id number] PCP - General Family Medicine 10/06/21 [facility] 04/19/23 07/20/23 documented as of this encounter
--- OUTSIDE RECORDS SUMMARY | 2024-12-26 22:13 | XMS_ITS | Clinical Summary ---
Author Organization [employer] Address [address] [place] [address] 7 [place] [address] Care Team Providers Care Relocation Commissioner Name Role Phone [place] [facility] Primary Care Provider [phone] Allergies Active Allergy Reactions Criticality Noted Date Comments Nickel Itching Medium 01/06/2015 Causes eczema Pineapple Swelling 03/12/2022 Medications betamethasone, augmented, (Diprolene) 0.05 % ointmentIndicat ions:Neuroderma titis Apply topically 2 times daily. 30 g Active Active Problems Problem Noted Date Diagnosed Date Eczema 03/12/2022 Overview (03/12/2022): triamcinolone; referred to ne derm 04/20 Obesity (BMI 30-39.9) 03/12/2022 Severe obesity (CMS/HCC) 03/12/2022 Spotting in first trimester 03/12/2022 Partial idiopathic epilepsy with seizures of localized onset, not intractable, without status epilepticus ([facility]) 12/29/2020 Generalized anxiety disorder 12/13/2020 Overview (03/12/2022): Last Assessment & Plan: High situational stressors, but patient does feel some benefit from Lexapro. No significant side effects reported. Will increase dose to 10 mg daily and continue to monitor. Discussed importance of psychotherapy. F/u in 3 months or sooner as needed. Anxiety 11/12/2020 Overview (03/12/2022): Last Assessment & Plan: Discussed pharmacotherapy, although would recommend trying some behavioral therapies to decrease anxiety, such as mindfulness practices, regular exercise, or yoga. Urged patient to connect with psychotherapist for regular talk therapy/CBT treatments. Pt verbalizes understanding and in agreement with plan. PCOS (polycystic ovarian syndrome) 11/12/2020 Overview (03/12/2022): Last Assessment & Plan: Presencie of irregular periods, hirsutism, overweight, and [...] wi thout status migrainosus, not intractable 09/19/2020 Overview (03/12/2022): Last Assessment & Plan: F/u with [facility] neurology for further discussion of preventative therapies. Seizure disorder ([facility]) 08/04/2020 Overview (03/12/2022): Last Assessment & Plan: Stable with Keppra without recent seizure reported. Upcoming appointment with Dr. Rangel at [facility] neurology. Overweight 09/07/2019 Overview (03/12/2022): Last Assessment & Plan: Encourage healthy eating and regular exercise. IUD contraception 10/19/2016 Overview (03/12/2022): 07/04/15 Encounters Date Type Department Care Team Description 12/26/2024 9:30 AM EST Office Visit [facility] [address] [place] [id number] MonumentAiyana metz FNP Routine screening for STI (sexually transmitted infection) (Primary Dx); Healthcare maintenance; Status post bariatric surgery; Other fatigue; Encounter for immunization 12/26/2024 Travel 12/25/2024 Telephone [facility] [address] [place] [address] Aiyana Mathias FNP chart prep 12/19/2024 Patient Outreach [facility] [address] [place] [address] MonumentAiyana metz FNP Pre-visit Planning ((Unable to reach for PVP screening, LVM) to be completed in office ) 12/19/2024 Travel 11/21/2024 Travel from Last 3 Months Immunizations Immunization Administration Dates Next Due DTaP 08/21/2001, 0,01/07/1998,11/07,1997 DTaP / HiB / IPV 12/02/1998, 8,1997,09/07 HPV, Quadrivalent 06/04/2010,01/16/2010,11/15/19 10 Hep B, Adolescent or Pediatric 7,1997,1997,07/26 Hep B, adult 10/10/2019,02/14/2019,01/17/2019 Hib (HbOC) 12/02/1998, 8,1997,09/07 IPV 08/21/2001, 8,1997,09/07 Influenza Injectable Quadriv alant Preservative Free IIV4 MDCK 03/01/2019 Influenza injectable quadriv alent preservative free 11/10/2020 Influenza, IIV3, injectable 01/18/2012, 0,10/22/2008 Influenza, seasonal, injecta ble, preservative free 10/17/2015 MMR 08/21/2001,07/30/1998 Meningococcal ACWY, unspecified 07/04/2014,11/14 Meningococcal MCV4P ACYW-135 07/04/2014,11/15/19 10 Td (adult), unspecified 07/19/2018 Tdap 12/26/2024 Social History Tobacco Use Types Packs/Day Years [...] is your housing situation today? I have ace delatorre 12/06/[address] you [...] Orientation Straight 12/07/2021 10 :35 AM EDT Last Filed Vital Signs Vital Sign Reading Time Taken Comments Blood Pressure 120/80 12/26/2024 9:29 AM EST Pulse 80 12/26/2024 9:29 AM EST Temperature 36.7 C (98.1 F) 12/26/2024 9:29 AM EST Respiratory Rate 18 12/26/2024 9:29 AM EST Oxygen Saturation 98% 03/12/2022 2:44 PM EST Inhaled Oxygen Concentration - - Weight 60.4 kg (133 lb 3.2 oz) 12/26/2024 9:29 A M EST Height 160 cm (5' 3 ) 12/26/2024 9:29 AM EST Body Mass Index 23.6 12/26/2024 9:29 AM EST Plan of Treatment Upcoming Encounters Date Type Department Care Team ([facility] st Contact Info) Description 03/18/2025 9:00 AM EST Office Visit [facility] [address] [place] [address] Heydi Chambers, OD [address] [place] [address] Health Maintenance Due Date Last Done Comments HIV Screening 1997 Family Planning (PISQ) 2012 Hepatitis C Screening 07/27/2015 Hepatitis A Vaccines (1 of 2 - Risk 2-dose series) 2016 Pap Smear 2018 SDOH Screening 04/06/2024 04/06/2023 COVID-19 Vaccine ( season) 2024 01/14/2021, 04/09/2020, 03/10/2020 Disability Screening 12/19/2025 12/19/2024 Alcohol/Substance Use Screening 12/26/2025 12/26/2024 Depression Screening 12/26/2025 12/26/2024, 12/27/19 25 Tobacco Screening 12/26/2025 12/26/2024 Lipid Panel 12/26/2029 12/26/2024 DTaP/Tdap/Td Vaccines (7 - Td or Tdap) 12/26/2034 12/26/2024, 07/19/2018, 07/19/2018, Additional history exists Zoster Vaccines (1 of 2) 07/27/2047 RSV Patients and Patients Aged 60 years or older (1 - 1-dose 75+ series) 2072 HIB Vaccines Completed 12/02/1998, 11/08, 01/07/1998, Additional history exists IPV Vaccines Completed 08/21/2001, 11/08, 01/29/1998, Additional history exists HPV Vaccines Completed 06/04/2010, 01/07, 11/14/2009 Meningococcal Vaccine Completed 07/04/2014 , 07/04/2014, 11/14/2009, Additional history exists Hepatitis B Vaccines Completed 10/10/2019, 02/14/2019, 01/17/2019, Additional history exists Influenza Vaccine Completed 12/06/2024, , 11/26/2022, Additional history exists Meningococcal B Vaccine Aged Out No l onger eligible based on patient's age to complete this topic Pneumococcal Vaccine: Pediatrics (0 to 5 Years) and At-Risk Patients (6 to 49) Years Aged Out No longer eligible based on patient's age to complete this topic RSV under 20 months Aged Out No longe r eligible based on patient's age to complete this topic Rotavirus Vaccines Aged Out No longer eligible based on patient's age to complete this topic Procedures Procedure Name Priority Date/Time Associated Diagnosis Comments FERRITIN Routine 12/26/2024 11:30 AM EST Status post bariatric surgery TSH W/REFLEX TO FT4 Routine 12/26/2024 1 1:30 AM EST Other fatigue VITAMIN D,25-OH,TOTAL,IA Routine 12/26/2024 11:30 AM EST Status post bariatric surgery CBC WITH AUTO DIFFERENTIAL Routine 12/26/2024 11:30 AM EST Status post bariatric surgery VITAMIN B12/FOLATE, SERUM PANEL Routine 12/26/2024 11:30 AM EST Status post bariatric surgery LIPID PANEL, STANDARD Routine 12/26/2024 11:30 AM EST Healthcare maintenance from Last 3 Months Results * Vitamin D, 25-Hydroxy, Total, Immunoassay (12/26/2024 11:30 AM EST) Vitamin D 25-OH Total 30.9 >30 ng/mL [facility] Comment: Health Based Reference Values*< 20 ng/mL Hsubsycrk13-49 ng/mL Insufficient> 30 ng/mL Sufficient*Tejal WEBB. N [...] 11:30 AM EST 12/26/2024 11:30 AM EST [facility] LAB BLOOD ORDERABLES Final Re sult Performing Organization Address [facility] Co de Phone Number [facility] [address] [place] [phone] * Vitamin B12/Folate, Serum Panel (12/26/2024 11:30 AM EST) Vitamin B12 292 200 - 900 pg/mL [facility] Comment:NORMAL 200-900 PG/ML INDETERMINATE 160-199 PG/ML DEFICIENT < 160 PG/ML Folate 13.0 > or = 4.0 ng/mL [facility] Comment:Reference Values:> o r = 4.0 ng/mL< 4.0 ng/mL suggests folate deficiency Methotrexate, aminopterin and folinic acid(leucovorin) are chemotherapeutic agents whose molecularstructures are similar to folate; therefore, the Architectfolate assay cannot be used for patients using these drugs. Blood Venous blood specimen / Unknown 12/26/2024 11:30 AM EST 12/26/2024 11:30 AM EST [facility] LAB BLOOD ORDERABLES Final Re sult Performing Organization Address [facility]/ZIP Co de Phone Number [facility] [address] [place] [address] [phone] * TSH W/Reflex to FT4 (12/26/2024 11:30 AM EST) TSH reflex Free T4 0.52 0.32 - 4.0 uIU/mL [facility] Blood Venous blood specimen / Unknown 12/26/2024 11:30 AM EST 12/26/2024 11:30 AM EST [facility] ELECTRONIC DATA INTERCHANGE SPECIALIST LAB BLOOD ORDERABLES Final Re sult [facility] [address] [place] [address] [phone] * CBC auto differential (12/26/2024 11:30 AM EST) White Blood Count 8.2 4.8 - 10.8 X10*3/uL [facility] Red Blood Count 4.70 4.20 - 5.50 X10*6/uL [facility] Hemoglobin 13.5 12.0 - 16.0 g/dl [facility] Hematocrit 42.1 37.0 - 47.0 % [facility] Mean Corpuscular Volume 89.6 80.0 - 98.0 fL [facility] Mean Corpuscular Hemoglobin 28.7 27.0 - 33.0 pg [facility] Mean Corpuscular HGB Conc 32.1 31.0 - 35.0 g/dl [facility] Red Cell Distribution Width 12.5 11.0 - 16.0 % [facility] Platelet Count 324 160 - 400 X10*3/uL [facility] Mean Platelet Volume 10.6 9.4 - 12.3 fL [facility] Neutrophils Percent Auto 66.5 45 - 73 % [facility] Imm Gran Pct Auto 0.2 0.0 - 0.4 % [facility] Lymphocytes Percent Auto 26.8 20 - 40 % [facility] Monocytes Percent Auto 5.6 2 - 11 % [facility] Eosinophils Percent Auto 0.4 0 - 4 % [facility] Basophils Percent Auto 0.5 0 - 2 % [facility] NRBC Pct Auto 0.0 0.0 - 0.2 /100WBC [facility] Neutrophils Absolute Auto 5.4 2.0 - 8.3 x10*3/uL [facility] Imm Gran Abs Auto 0.02 0.00 - 0.03 X10*3/uL [facility] Lymphocytes Absolute Auto 2.2 1.2 - 4.9 X10*3/uL [facility] Monocytes Absolute Auto 0.5 0.1 - 1.2 X10*3/uL [facility] Eosinophils Absolute Auto 0.0 0.0 - 0.4 X10*3/uL [facility] Basophils Absolute Auto 0.0 0.0 - 0.2 X10*3/uL [facility] NRBC Abs Auto 0.000 0.0 - 0.012 X10*3/uL [facility] Blood Venous blood specimen / Unknown 12/26/2024 11:30 AM EST 12/26/2024 11:30 AM EST [facility] LAB BLOOD ORDERABLES Final Re sult Performing Organization Address [facility] Co de Phone Number [facility] [address] [place] [address] [phone] * Ferritin (12/26/2024 11:30 AM EST) Ferritin 96 10 - 122 ng/mL [facility] Blood Venous blood specimen / Unknown 12/26/2024 11:30 AM EST 12/26/2024 11:30 AM EST [facility] LAB BLOOD ORDERABLES Final Re sult Performing Organization Address City/[facility]/ZIP Co de Phone Number [facility] [address] [place] [address] [phone] * Lipid Panel, Standard (12/26/2024 11:30 AM EST) Triglycerides 62 <150 mg/dL [facility] Comment:Desirable Triglyceri de: less than 150 mg/dLBorderline High Triglyceride 150-199 mg/dLHigh Triglyceride: 200-499 mg/dLVery High Triglyceride: greater than or equal to 5OO mg/dL Cholesterol 149 <200 mg/dL [facility] Comment:Desirable Cholestero l: less than 200 mg/dLBorderline High Cholesterol: 200-239 mg/dLHigh Cholesterol: greater than 239 mg/dL LDL Cholesterol Calculated 83 <100 mg/dL [facility] Comment:Desirable LDL: less than 100 mg/dLNear Optimal/Above Optimal LDL: 110- 129 mg/dLBorderline High LDL: 130-159 mg/dLHigh LDL: 160-189 mg/dLVery High LDL: greater than or equal to 190 mg/dL HDL Cholesterol 54 >40 mg/dL [facility] Comment:Desirable HDL: great er than 40 mg/dL Note: This HDL assay may give artificially low results in patients with liver disease. Blood Venous blood specimen / Unknown 12/26/2024 11:30 AM EST 12/26/2024 11:30 AM EST [facility] LAB BLOOD ORDERABLES Final Re sult [facility] [address] [place] [address] [phone] from Last 3 Months Insurance [facility] C[employer] Care Teams Relocation Commissioner Relationship Specialty Start Date End Date Aiyana Mathias FNP [address] [place] [phone] PCP - General Family Medicine 10/06/21
--- OUTSIDE RECORDS SUMMARY | 2024-12-26 22:13 | XMS_ITS | Encounter Summary ---
Author Organization [employer] Address [address] [facility] [address] [place] [address] Care Team Providers Care Air Analysis Engineering Technician Name Role Phone Aiyana Mathias ADVANCED REGISTERED NURSE Primary Care Provider [phone] Encounter Details Date Type Department Care Team (Latest Contact Info) Description 12/26/2024 Travel Social History Tobacco Use Types Packs/Day Years Used Date Smoking Tobacco: Never Smokeless Tobacco: Never Alcohol Use Standard Drinks/Week Comments Never 0 [...] AM EDT documented as of this encounter Functional Status * Over the past 2 weeks, how often have you been bothered by any of the following problems? Question Answer Date of Assessment Author Patient Health Questionnaire-2 Score 0 12/26/2024 9:36 AM Alexandrea White MA * Little interest or pleasure in doing things Answer Date of Assessment Author Not at all 12/26/2024 9:36 AM Alexandrea Mcnally MA * Feeling down, depressed, or hopeless Answer Date of Assessment Author Not at all 12/26/2024 9:36 AM Alexandrea Mcnally MA * Trouble falling or staying asleep, [...] MA Trouble relaxing 0 12/26/2024 9:36 AM EST Alexandrea Minor MA Being so restless that it is hard to sit still 0 12/26/2024 9:36 AM Alexandrea White MA Becoming easily annoyed or irritable 0 12/26/2024 9:36 AM Alexandrea White MA Feeling afraid as if something awful might happen 0 12/26/2024 9:36 AM EST Alexandrea Song MA DAMION-7 Total Score 0 12/26/2024 9:36 AM Alexandrea White MA documented as of this encounter Plan of Treatment Upcoming Encounters Date Type Department Care Team (Late st Contact Info) Description 03/18/2025 9:00 AM EST Office Visit [facility] [address] [place] [address] Heydi Chambers OD [address] [place] [address] documented as of this encounter Visit Diagnoses Not on filedocumented in this encounter Additional Health Concerns Assessment Noted Time PHQ-9 Depression Total Score: 0 12/27/19 25 9:36 AM EST documented as of this encounter Care Teams Air Analysis Engineering Technician Relationship Specialty Start Date End Date Elmer YUVAL Bronson [address] [place] [address] PCP - General Family Medicine 10/06/21 documented as of this encounter
--- OUTSIDE RECORDS SUMMARY | 2024-12-26 22:13 | XMS_ITS | Encounter Summary ---
Author Organization [employer] Address [address] [facility] [address] [place] [address] Care Team Providers Care Railcar Brake Operator Name Role Phone Crane [facility] Primary Care Provider [phone] Reason for Visit * Reason Onset Date Comments chart prep 12/25/2024 Encounter Details Date Type Department Care Team ([facility] st Contact Info) Description 12/25/2024 Telephone [facility] [address] [place], [place] [phone] [facility] [address] [place] [address] chart prep Social History Tobacco Use Types Packs/Day Years [...] Patient Health Questionnaire-2 Score 0 12/26/2024 Comments Unknown Sex and Gender Information Value Date Recorded Sex Assigned at Female 12/07/2021 10:35 AM EDT Legal Sex Female 10:35 AM EDT Gender Identity Female 12/07/2021 10:35 AM EDT Sexual Orientation Straight 12/07/2021 10 :35 AM EDT documented as of this encounter Miscellaneous Notes * Telephone Encounter - Johnathon Buckley MA - 12/25/2024 10:56 AM EST Chart Prep Labs: not applicable Images: not applicable Referrals: not applicable Vaccines due: Covid, Flu, Hep A, and DTAP Screenings: pap smear and STI screening Overdue care gaps: SBIRT, SDOH, PHQ-9, DAMION-7, and Tobacco documented in this encounter Plan of Treatment Upcoming Encounters Date Type Department Care Team (Late st Contact Info) Description 03/18/2025 9:00 AM EST Office Visit [facility] [address] [place] [address] Heydi Chambers, OD [address] [place] [address] documented as of this encounter Visit Diagnoses Not on filedocumented in this encounter Additional Health Concerns Assessment Noted Time PHQ-9 Depression Total Score: 0 03/12/19 23 2:47 PM EST documented as of this encounter Care Teams Railcar Brake Operator Relationship Specialty Start Date End Date Aiyana Mathias FNP [address] [place] [address] PCP - General Family Medicine 10/06/21 documented as of this encounter
[2024-12-27 08:40] LABS: Syphilis Screen Nonreactive (Nonreactive)
[2024-12-27 09:14] LABS: HBS Num1 14.03 mIU/mL (0-7.99); HBc Num1 0.07 S/CO (0.00-0.79); HBsAGNum1 0.40 S/CO (0.00-0.99); HIV Num 1 0.05 S/CO (0.00-0.99); Hepatitis B Surface Antigen Negative (Negative); ~HepC Num1 0.07 S/CO (0.00-0.79); ~Hepatitis B Surface Antibody REACTIVE (Nonreactive); ~Hepatitis C Antibody Nonreactive (Nonreactive)
== END 2024-12-26 11:12 | disposition home or self-care (01) ==
LOC: HO.LAB 11:11
PROVIDERS: PCP Registered Nurse; Visit Provider Registered Nurse
DX: Z00.00 Encounter for general adult medical examination without abnormal findings (principal); Z11.3 Encounter for screening for infections with a predominantly sexual mode of transmission; Z11.59 Encounter for screening for other viral diseases; Z11.4 Encounter for screening for human immunodeficiency virus [HIV]; R53.83 Other fatigue; Z98.84 Bariatric surgery status
CPT/HCPCS: 36415; 80061; 82306; 82607; 82728; 82746; 84425; 84443; 84630; 85025; 86704; 86706; 86780; 86803; 87340; 87389